=== PATIENT | male | born 1930 | race Caucasian/White ===

== ENCOUNTER 2017-05-03 12:10 | Outpatient (CLI) | payer MEDICARE | END 2017-05-03 12:11 | disposition home or self-care (01) | LOC: ULT 12:10 | PROVIDERS: ATTEND Family Medicine | DX: I25.10 Atherosclerotic heart disease of native coronary artery without angina pectoris (principal); I50.30 Unspecified diastolic (congestive) heart failure; I51.7 Cardiomegaly; I70.90 Unspecified atherosclerosis; I35.1 Nonrheumatic aortic (valve) insufficiency; I34.0 Nonrheumatic mitral (valve) insufficiency; I07.1 Rheumatic tricuspid insufficiency; I77.819 Aortic ectasia, unspecified site | CPT/HCPCS: 93306 ==

== ENCOUNTER 2020-04-21 01:01 | Observation (INO) | payer MEDICARE ==
[2020-04-21 01:49] LABS: #Eosinphils 0.1 thou/uL (0.0-0.7); #Lymphocytes 0.6 thou/uL (1.20-3.40); #Monocytes 0.5 thou/uL (0.11-0.59); #Neutrophils 8.1 thou/uL (1.40-6.50); %Basophils 0.1 % (0.0-1.0); %Eosinophils 0.6 % (0.0-10.0); %Lymphocytes 6.5 % (21.0-51.0); %Monocytes 5.7 % (0.0-10.0); %Neutrophils 87.1 % (42.0-75.0); Hemoglobin 12.5 g/dL (14.0-18.0); Mean Corpuscular Volume 94.3 fL (78.0-98.0); Mean Platelet Volume 8.2 fL (7.4-10.4); Platelet Count 151 thou/uL (130-400); RBC Distribution Width 11.6 % (11.5-14.5); White Blood Cell (WBC) Count 9.2 thou/uL (4.8-10.8)
[2020-04-21 02:08] LABS: ALT (SGPT) 38 U/L (8-55); AST (SGOT) 55 U/L (5-34); Albumin 4.2 g/dL (3.4-4.8); Alkaline Phosphatase 74 U/L (40-110); Anion Gap 14 mmol/L (10-20); BUN (Urea Nitrogen) 21 mg/dL (8.4-25.7); Bilirubin, Total 0.9 mg/dL (0.2-1.2); Calc. Creatinine Clearance 0 mL/min (70-130); Calcium 9.2 mg/dL (7.8-10.44); Carbon Dioxide 26 mmol/L (23-31); Chloride 104 mmol/L (98-107); Globulin 3.1 g/dL (2.4-3.5); Glucose 112 mg/dL (83-110); Potassium 3.8 mmol/L (3.5-5.1); Protein, Total 7.3 g/dL (5.8-8.1); Sodium 140 mmol/L (136-145)
[2020-04-21 02:09] LABS: Bacteria/HPF None Seen HPF (None Seen); Bilirubin Negative (Negative); Blood, Urine Trace (Negative); Clarity Clear (Clear); Glucose, Urine (Dipstick) Normal (Negative); Ketone, Urine Negative (Negative); Leukocyte Negative Leu/uL (Negative); Nitrite Negative (Negative); Protein, Urine (Dipstick) Negative (Neg-Trace); Specific Gravity, Urine 1.015 (1.002-1.036); Squamous Epithelial None Seen HPF (0-3); Urobilinogen Normal mg/dL (Less than 2); WBC/HPF 0-3 HPF (0-3); pH, Urine 7.5 (5.0-9.0)
[2020-04-21] MEDS ORDERED: Piperacillin/Tazobactam 3.375 GM VIAL ONE (02:14)
[2020-04-21] MEDS ORDERED: Senokot S 8.6-50 MG TAB PO PRN (03:48)
[2020-04-21] MEDS ORDERED: Ondansetron PF 4 MG/2 ML Vial IVP PRN (03:48)
[2020-04-21] MEDS ORDERED: Acetaminophen 325 MG TAB PO PRN (03:48)
[2020-04-21] MEDS ORDERED: Sodium Chloride 0.9% 1,000 ML IV SCH (04:00)
--- NOTE | 2020-04-21 04:11 | PDOC.BPN ---
- Brief Progress Note [id number] dictated
--- NOTE | 2020-04-21 04:42 | HP ---
CHIEF COMPLAINT: Abdominal pain. HISTORY OF PRESENT ILLNESS: Mr. Atwood is an 89-year-old male with past medical history of hypertension, hyperlipidemia, heart block, GERD, coronary artery bypass graft surgery, hernia repair, and prostate surgery, presents to the emergency room with abdominal pain. The patient denies chest pain or shortness of breath. In the emergency room, the patient was found to be tachycardic on arrival, elevated blood pressure, and also it was reported that the patient was febrile. Also it was reported that the patient had nausea and vomiting. Fever was more than 101. Lab work was done. Other than trace hematuria and creatinine of 1.3, no other significant lab results. Imaging studies including CT abdomen and pelvis was done. Official result is pending at the time of dictation. The patient was given one dose of IV Zosyn in the emergency room. COVID-19 test is being sent, result is pending. The patient is being admitted to hospital for further management. PAST MEDICAL HISTORY: 1. GERD. 2. Hypertension. 3. Hyperlipidemia. 4. Coronary artery disease. PAST SURGICAL HISTORY: 1. Hernia repair. 2. Prostate surgery. 3. Coronary artery bypass graft surgery with two stents. SOCIAL HISTORY: Denies smoking, alcohol drinking, or drug abuse. FAMILY HISTORY: Reviewed and noncontributory. HOME MEDICATIONS: See home medication reconciliation form for updated medications. ALLERGIES: NO KNOWN ALLERGIES. REVIEW OF SYSTEMS: Review of 14 systems negative except what is mentioned in the history of present illness. PHYSICAL EXAMINATION: GENERAL: The patient is awake, alert, not in acute distress. VITAL SIGNS: Blood pressure is 140/80, pulse is 93, respiratory rate is 23, and temperature 99.1. It was reported that the patient had a temperature of more than 101 prior to arrival. HEAD AND NECK: Normocephalic, atraumatic. Neck is supple. CHEST: Fair bilateral air entry. ABDOMEN: Mildly distended. Mildly tender. Bowel sounds present. NEUROLOGIC: Awake, alert, oriented. No focal deficits. PSYCH: Unable to assess. EXTREMITIES: No clubbing or cyanosis. LABORATORY DATA: As mentioned above in the history of present illness. IMAGING STUDIES: As mentioned above in the history of present illness. ASSESSMENT: 1. Abdominal pain, which improved since the patient arrived to the emergency room. 2. Systemic inflammatory response syndrome. No obvious source of infection at this point, but the patient was reported to be tachycardic and had a fever. 3. Hypertension. 4. Coronary artery disease. 5. Gastroesophageal reflux disease. 6. Hyperlipidemia. PLAN: 1. Admit. 2. Septic workup including cultures done in the ED. 3. Empirically, the patient was started on IV antibiotic, still not clear what is the source of infection. 4. COVID-19 test sent, to follow the results. 5. IV fluid hydration. 6. Reconcile home medications. 7. DVT prophylaxis as appropriate. 8. Expected length of stay, at least 1 midnight if the patient is stable. Job ID: [id number]
[2020-04-21 05:40] LABS: SARS-CoV-2 NAA Rapid Test Not Detected (NotDetected)
[2020-04-21] MEDS ORDERED: Piperacillin/Tazobactam 2.25 GM in Sodium Chloride 0.9% 100 ML IVPB SCH (06:00)
--- NOTE | 2020-04-21 07:47 | RAD ---
Portable frontal chest radiograph: 04/21/2020 COMPARISON: None HISTORY: Constipation FINDINGS: Midline sternotomy wires and mediastinal clips are present. Hiatal hernia suspected at the gastroesophageal junction. No pneumothorax or pleural fluid. No focal consolidation or alveolar edema. IMPRESSION: No focal consolidation or alveolar edema.
--- NOTE | 2020-04-21 07:50 | CT ---
PRELIMINARY REPORT/[facility]/EMERGENCY AFTER HOURS PROCEDURE: EXAM: CT Abdomen and Pelvis with Intravenous Contrast CLINICAL HISTORY: ER5...M89, CONSTIPATION X 3 DAYS. N/V. hernia repair. prostate surgery TECHNIQUE: Axial computed tomography images of the abdomen and pelvis with intravenous contrast. CONTRAST: With; 70ML ISOVUE 370 COMPARISON: None provided. FINDINGS: LUNG BASES: No basilar airspace consolidation or pleural effusion. Bibasilar dependent atelectasis LIVER: Unremarkable. GALLBLADDER AND BILE DUCTS: Unremarkable. No calcified stone. No ductal dilation. PANCREAS: Unremarkable. SPLEEN: Unremarkable. ADRENAL GLANDS: Unremarkable. KIDNEYS, URETERS, AND BLADDER: Multiple bilateral renal cysts. No hydronephrosis or nephrolithiasis. No ureteral or bladder calculi. STOMACH AND BOWEL: Large hiatal hernia. No obstruction. No wall thickening. No CT evidence of colitis or acute divertic ulitis. Moderate colonic stool burden. APPENDIX: No CT evidence for appendicitis. PERITONEUM: No free fluid. No free air. LYMPH NODES: No lymphadenopathy. REPRODUCTIVE: Unremarkable as visualized. VASCULATURE: No aortic aneurysm. Scattered atherosclerotic vascular calcifications to include the coronary arteri es. BONES: No fracture or suspicious osseous abnormality. Moderate multilevel degenerative changes of the spine . ABDOMINAL WALL AND SOFT TISSUES: Unremarkable. IMPRESSION: 1. No acute intra-abdominal or pelvic abnormality. Specifically, no evidence of bowel obstruction. Moderate colonic stool burden. 2. Large hiatal hernia. Other chronic findings as described above ELECTRONICALLY SIGNED BY: Saw Torrez DO Apr 21, 2020 2:37:05 AM SALES ACCOUNT SPECIALIST This report is intended for review by the ordering physician only, in accordance of law. If you recei ve this report in error, please call [facility] at [phone]. FINAL REPORT EMERGENCY AFTER HOURS CT OF THE ABDOMEN AND PELVIS WITH CONTRAST: DATE: 04/21/2020 COMPARISON: 12/20/2017. FINDINGS/IMPRESSION: I agree with the findings and impression given in the preliminary report per [facility] physici an. 1. No evidence of acute intra-abdominal/pelvic abnormality. 2. Hiatal hernia. 3. Bilateral renal cysts. POS: EAA
[2020-04-21] MEDS ORDERED: Enoxaparin Sodium 30 MG/0.3 ML SYRINGE ONE (08:02)
[2020-04-21] MEDS ORDERED: Famotidine/PF 20 mg/2ml Vial ONE (08:02)
[2020-04-21] MEDS ORDERED: Famotidine/PF 20 mg/2ml Vial SLOW IVP SCH (09:00)
[2020-04-21] MEDS ORDERED: Enoxaparin Sodium 30 MG/0.3 ML SYRINGE SC SCH (09:00)
[2020-04-21] MEDS ORDERED: Iopamidol-370 76% 500 ML 1 ML ONE (12:58)
[2020-04-21] MEDS ORDERED: Piperacillin/Tazobactam 2.25 GM VIAL ONE (14:55)
--- NOTE | 2020-04-21 19:18 | PDOC.DS.DS ---
Provider - Provider Date of Admission: 04/21/20 03:53 Date of Discharge: 04/21/20 Admitting Provider: Rachel Krause MD Primary Care Physician: Yris Agarwal MD Course - Hospital Course Hospital Course: This is an 89-year-old man with a history of hypertension hyperlipidemia coronary artery disease status post CABG, hernia repair who presented to the emergency room of Abdominal pain. He noted having 2 episodes of crampy abdominal pain however the pain had resolved by the time he got here to the emergency room. Initial evaluation with CT of the abdomen revealed no acute events. His Covid test was negative. He was started on Zosyn for initial coverage for possible infection however none was found on eventual evaluation. He did have a leukocytosis or any indication of infection on imaging. Symptoms are completely resolved while he was in the EDdecision was made to discharge him. Acute crampy abdominal pain is likely due to constipation which he notes has b een having intermittently for several years now. He was discharged on MiraLAX to follow-up with his PCP for further evaluation Resuscitation Status: 04/21/20 03:48 Resuscitation Status Routine Resuscitation Status: FULL: Full Resuscitation - Labs Lab Results: 04/21/20 01:28 04/21/20 01:28 Abnormal Lab Results - Last 48 hrs 04/21/20 01:28: Creatinine 1.32 H, AST 55 H 04/21/20 01:28: RBC 3.90 L, Hgb 12.5 L, Hct 36.8 L, MCH 32.0 H, Neutrophils % 87.1 H, Lymphocytes % 6.5 L, Neutrophils # 8.1 H, Lymphocytes # 0.6 L 04/21/20 01:42: Urine Blood Trace A, Urine RBC 7-10 A Microbiology - Entire Visit 04/21/20 01:42 Urine voided Urine Culture - Preliminary NO GROWTH AT 12 HOURS - Physical Exam Physical Exam: The patient was seen and examined on the day of discharge. General: In bed, no acute distress. CVS: S1-S2 present no murmurs gallops or rubs. Respiratory; air entry adequate bilaterally. Abdomen: Soft nontender nondistended bowel sounds present and normal. Extremities: No cyanosis or clubbing Problem - Discharge Plan Assessment: Abdominal pain Unclear etiology Possible constipation MiraLAX prescribed Follow-up with PCP Carotid artery disease Stable Plan - Discharge Medications Home Medications: Medication Instructions Recorded Confirmed Type Aspirin [Ecotrin Low Strength] 1 tab PO DAILY 04/23/20 04/23/20 History Bicalutamide [Casodex] 50 mg PO DAILY 04/23/20 04/23/20 History Esomeprazole Magnesium [NexIUM] 1 tab PO DAILY 04/23/20 04/23/20 History Ezetimibe [Zetia] 10 mg PO DAILY 04/23/20 04/23/20 History Lisinopril [Zestril] 1 tab PO DAILY 04/23/20 04/23/20 History Simvastatin [Zocor] 20 mg PO HS 04/23/20 04/23/20 History Allergies: No Known Allergies Allergy (Unverified 04/21/20 04:00) - Discharge Instructions Activity:: Activity as Tolerated - Follow up Plan Referrals: Yris Agarwal MD [Primary Care Provider] - 10 Days Disposition: HOME Quality - Care Measures CORE MEASURES:: N/A
--- NOTE | 2020-04-22 00:09 | PDOC.BPN ---
- Brief Progress Note Encounter Date: 04/22/20 Encounter Time: 00:06 I discharged Mr. Atwood later on his day of his admission only for his blood cultures to turn out worker positive 2/2 botles for gram negative rods. I talk to the charge nurse. Giving how late it is he will be called to return in the morning
--- NOTE | 2020-05-01 15:05 | EKG ---
Test Reason : Blood Pressure : / mmHG Vent. Rate : 095 BPM Atrial Rate : 095 BPM P-R Int : 250 ms QRS Dur : 082 ms QT Int : 344 ms P-R-T Axes : 058 009 043 degrees QTc Int : 432 ms Sinus rhythm with 1st degree A-V block Voltage criteria for left ventricular hypertrophy Cannot rule out Septal infarct , age undetermined Abnormal ECG Confirmed by DEXTER FLORENCE ([id number]), supervising editor news reel YOGESH DE ANDA ([id number]) on 05/01/2020 3:04:59 PM Referred By: Confirmed By:DEXTER FLORENCE
== END 2020-04-21 17:05 | disposition home or self-care (01) ==
LOC: EDBD → ERS 01:01 → ERHOLD 03:53
PROVIDERS: ADMIT Internal Medicine; ATTEND Internal Medicine
DX: R10.9 Unspecified abdominal pain (principal); R65.10 Systemic inflammatory response syndrome (SIRS) of non-infectious origin without acute organ dysfunction; I10 Essential (primary) hypertension; I25.10 Atherosclerotic heart disease of native coronary artery without angina pectoris; K21.9 Gastro-esophageal reflux disease without esophagitis; E78.5 Hyperlipidemia, unspecified; K44.9 Diaphragmatic hernia without obstruction or gangrene; N28.1 Cyst of kidney, acquired; Z95.1 Presence of aortocoronary bypass graft; Z79.82 Long term (current) use of aspirin; Z79.899 Other long term (current) drug therapy; Z20.828 Contact with and (suspected) exposure to other viral communicable diseases
CPT/HCPCS: 71045; 74177; 80053; 83605; 85025; 87040; 87077; 87086; 87149 ×2; 87186; 93005; 96365; 99285; U0002; 81003; 81015; J1650; J2543; J3490; Q9967; S0028